=== PATIENT | male | born 1955 | race Two or more races ===

== ENCOUNTER 2019-05-09 21:08 | Inpatient (IN) | payer OTHER ==
[~2019-05-09] VITALS: Ht 165.1 cm; Wt 91.6 kg
[~2019-05-09 21:08] MED LIST: GLIPIZIDE10 MG; LISINOPRIL30 MG; METFORMIN HCL1000 MG; TRAZODONE HCL100 MG
== END 2019-05-15 15:43 | disposition home or self-care (01) | DRG 602 ==
LOC: ER 21:08 → SURH 05-10 10:38 → SEC-K 05-10 10:38 → MEDJ 05-10 14:00 → SURH 05-10 14:10
PROVIDERS: ADMIT Internal Medicine
PROC: 8E0ZXY6 Isolation (ICD-10-PCS; principal; 2019-05-10)
DX: L03.116 Cellulitis of left lower limb (principal); E11.00 Type 2 diabetes mellitus with hyperosmolarity without nonketotic hyperglycemic-hyperosmolar coma (NKHHC); J45.901 Unspecified asthma with (acute) exacerbation; I11.9 Hypertensive heart disease without heart failure; K29.60 Other gastritis without bleeding; J20.9 Acute bronchitis, unspecified; E11.65 Type 2 diabetes mellitus with hyperglycemia; B96.89 Other specified bacterial agents as the cause of diseases classified elsewhere